=== PATIENT | female | born 1970 | race African-American/Black ===

== ENCOUNTER 2025-03-20 10:48 | Emergency (ER) | payer OTHER, SELFPAY ==
[2025-03-20 10:54] VITALS: BP 145/87; PULSE 80; RESP 19; TEMP 37.1; O2SAT 100
--- NOTE | 2025-03-20 11:24 | ED.URI ---
HPI - URI/Sore Throat General Chief Complaint: Upper Respiratory Infection Stated Complaint: Cough/SOB Time Seen by Provider: 03/20/25 11:15 Source: patient, RN notes reviewed and old records reviewed Mode of arrival: ambulatory Limitations: no limitations History of Present Illness HPI Narrative: 54 year old female presents to [facility] care with complaints of 3 day history of dry hacking cough which has made her lateral ribs sore from the frequency of her cough and has generalized body aches. Patient reports that she has also had some nasal congestion with drainage, denies any sore throat or any ear pain. Patient reports no fevers, chills or sweats. Patient has history of asthma and A-fib is on Eliquis. Patient has an inhaler but has not used her inhaler or taken any OTC medications for her symptoms states is concerned over what to take due to possible interaction with other medications she takes. MD elicited complaint: cough, rhinorrhea and nasal congestion Pertinent past history: asthma Onset (ago): day(s) (3) Consistency: constant Pain scale (0-10): 3 Able to tolerate fluids by mouth: Yes Treatments prior to arrival: other (no otc medication takes MONTELUKAST DAILY) Related Data Home Medications ?Medication ?Instructions ?Recorded ?Confirmed ?Last Taken ?Type apixaban 5 mg tablet (Eliquis) mg 03/20/25 Unknown History atorvastatin 20 mg tablet mg 03/20/25 Unknown History carvedilol 25 mg tablet mg 03/20/25 Unknown History diltiazem HCl 120 mg mg PO 03/20/25 Unknown History capsule,extended release 24 hr fluticasone 250 mcg-salmeterol 50 inhalation 03/20/25 Unknown History mcg/dose blistr powdr for inhalation (Wixela Inhub) hydrochlorothiazide 25 mg tablet mg 03/20/25 Unknown History levothyroxine 150 mcg tablet mcg 03/20/25 Unknown History montelukast 10 mg tablet mg 03/20/25 Unknown History Allergies Allergy/AdvReac Type Severity Reaction Status Date / Time No Known Allergies Allergy Verified 03/21/25 15:06 Review of Systems Review of Systems: CONSTITUTIONAL: Reports malaise, no chills, sweats, or fever. EYES: Denies visual changes, redness, or discharge. ENT: Reports rhinorrhea, congestion, sinus pressure, no otalgia and no sore throat. CARDIOVASCULAR: Denies chest pain, palpitations, or edema. RESPIRATORY: Reports acute frequent cough.? Denies any acute dyspnea, reports rib pain due to frequent cough GASTROINTESTINAL: Denies abdominal pain, nausea, vomiting, diarrhea SKIN: Denies rash or itching. MUSCULOSKELETAL: Reports myalgia. NEUROLOGIC: Denies headache. All systems reviewed & are unremarkable except as noted in HPI and below PMFSH Past Medical History Medical History (Updated 03/21/25 @ 15:10 by Mary Wood NP) Hypertension History of thyroid cancer Hypothyroidism Elevated cholesterol Paroxysmal A-fib Asthma Surgical History Surgical History (Updated 03/20/25 @ 12:29 by Lucia Lora NP) Previous section H/O thyroidectomy History of cholecystectomy Social History Social History (Updated 03/20/25 @ 11:37 by Lucia Lora NP) Smoking status: Never smoker Alcohol intake: current Alcohol use details: rare social Substance use type: does not use Gender identity (if verbalized by the patient): Female Comments At time of signature, agree with nursing past medical, surgical, social and family history. There is no relevant family history pertinent to the presenting complaint Exam Narrative: GENERAL: Well-appearing, well-nourished, and in no acute distress. HEAD: Normocephalic EYES: PERRLA, conjunctivae clear ENT: Nares clear, turbinates edematous and erythematous, clear discharge. Mucous membranes moist. TM pearly shen with dull light reflex bilaterally; no tragal tenderness. Oropharynx erythematous without lesions. Tonsils not enlarged and without exudate, no drooling, no hoarseness, no trismus, uvula midline.post nasal drainage NECK: Supple. No lymphadenopathy CHEST: Clear to auscultation, breath sounds equal. No wheezing, rhonchi, rales, or stridor. No respiratory distress, speaks in full sentences. frequent coughSAO2 100% on room air HEART: Regular rate and rhythm. No murmur heard. SKIN: Warm, dry, no rash. NEURO: Alert and oriented x3. PSYCH: Normal mood and affect Course Course Emergency Course: Patient is aware of diagnosis, understands and agrees to treatment plan.? Anticipatory guidance given.? Patient agrees to follow-up as directed and is aware of reasons to seek care at the emergency department. Portions of this record may have been created with voice recognition software Level of Care: Express Care Visit Vital Signs Vital signs: Vital Signs Temperature 37.1 C 03/20/25 10:54 Pulse Rate 80 03/20/25 10:54 Respiratory Rate 19 03/20/25 10:54 Blood Pressure 145/87 H 03/20/25 10:54 Pulse Oximetry 100 03/20/25 10:54 Oxygen Delivery Room Air 03/20/25 10:54 Temperature 37.1 C 03/20/25 10:54 Pulse Rate 80 03/20/25 10:54 Respiratory Rate 19 03/20/25 10:54 Blood Pressure 145/87 H 03/20/25 10:54 Pulse Oximetry 100 03/20/25 10:54 Oxygen Delivery Room Air 03/20/25 10:54 Reviewed MDM - URI/Sore Throat MDM Narrative Medical decision making narrative: Differential diagnosis considered: Donaldson virus, strep pharyngitis, allergic rhinitis, upper respiratory tract infection, sinusitis, rhinosinusitis, nasopharyngitis. viral pharyngitis, otitis media, otitis externa, pneumonia, bronchitis, viral cough syndrome, viral syndrome, and influenza.? Exam findings show no acute concerns or changes; patient is non-toxic appearing and is in no distress.? Patient is appropriate for outpatient treatment and follow-up. Differential Diagnosis Differential diagnosis: Likely upper respiratory infection, viral infection, bronchitis, influenza and other (COVID, acute cough) Medical Records Attestation: I reviewed the patient's medical records. Lab Data Attestation: I reviewed the patient's lab results. Lab results narrative: influenza A negative, Influenza B negative, COVID antigen negative Labs: Lab Results 03/20/25 03/20/25 03/20/25 Range/Units 11:05 11:05 11:05 POC Influenza A Ag Negative Negative (Negative) POC Influenza B Ag Negative Negative (Negative) POC SARS CoV-2 Ag Negative (Negative) 03/20/25 Range/Units 11:05 POC Influenza A Ag (Negative) POC Influenza B Ag (Negative) POC SARS CoV-2 Ag Negative (Negative) Critical Care Time Critical Care Time Critical Care Time: No Discharge Plan Discharge Clinical Impression: Upper respiratory infection with cough and congestion Patient Disposition: Home Condition: Stable Instructions: Antibiotic Form, Upper Respiratory Infection (ED), Acute Cough (ED) Additional Instructions: Increase fluids especially juices and water Rvip-ali-vrmremx cough and cold medicine of your choice for your symptoms Tylenol or Ibuprofen for any fever or pain Cough tablets as directed for cough--do not bite, chew or suck on--swallow whole Continue your inhaler/nebulizer as directed Zyrtec or Claritin or Zulema daily include Coricidin dcogestant heat to the face 20-30 minutes 4-6 times a day for pain Salt water gargles, throat lozenges or throat sprays as desired Antibiotic as directed--finished the medication If your symptoms persist, change or worsen significantly before you can contact your personal physician then please, without delay, go to the emergency department for further evaluation. Follow-up with PCP in 7-10 days or sooner if needed Follow up with PCP soon in regards to your blood pressure which is elevated above threshold for referral. Blood pressure above 120/80 may indicate pre-hypertension. 145/87 Patient Language: Serbian Prescriptions: New amoxicillin 500 mg capsule 500 mg PO TID Qty: 30 0RF Rx Instructions: take all doses of oral antibiotic benzonatate 200 mg capsule 200 mg PO TID PRN (Reason: cough) Qty: 20 0RF Rx Instructions: for cough No Action fluticasone propion-salmeterol [Wixela Inhub] 250-50 mcg/dose blister with device INHALATION carvedilol 25 mg tablet atorvastatin 20 mg tablet levothyroxine 150 mcg tablet diltiazem HCl 120 mg capsule,extended release 24hr PO montelukast 10 mg tablet hydrochlorothiazide 25 mg tablet Eliquis 5 mg tablet Follow-up/Referrals: Denice Stevens [Other] Time of Disposition: 11:45 Quality [place] Coma Scale Eyes: Open Verbal: Oriented and Alert Motor: Follows Commands [place] Coma Total Score: 15
[2025-03-20 11:43] LABS: EDCOVIDSCREEN Negative (Negative); EDINFLUASCREEN Negative (Negative); EDINFLUBSCREEN Negative (Negative)
[2025-03-20 11:44] LABS: EDCOVIDSCREEN Negative (Negative); EDINFLUASCREEN Negative (Negative); EDINFLUBSCREEN Negative (Negative)
== END 2025-03-20 11:50 | disposition home or self-care (01) ==
PROVIDERS: Emergency Provider Registered Nurse
DX: J06.9 Acute upper respiratory infection, unspecified (principal); R05.9 Cough, unspecified; Z20.822 Contact with and (suspected) exposure to COVID-19; I10 Essential (primary) hypertension; I48.0 Paroxysmal atrial fibrillation; E78.00 Pure hypercholesterolemia, unspecified; J45.909 Unspecified asthma, uncomplicated; E89.0 Postprocedural hypothyroidism; Z85.850 Personal history of malignant neoplasm of thyroid; Z79.01 Long term (current) use of anticoagulants
CPT/HCPCS: 87426; 87804; 99203; G0463

== ENCOUNTER 2025-03-21 14:47 | Emergency (ER) | payer OTHER, SELFPAY ==
[2025-03-21 14:58] VITALS: BP 110/66; PULSE 81; RESP 16; TEMP 37.1; O2SAT 99
--- NOTE | 2025-03-21 15:02 | ED_ITS ---
HPI - URI/Sore Throat General Chief Complaint: Upper Respiratory Infection Stated Complaint: upper respiratory infection seen 03/20/2025 Time Seen by Provider: 03/21/25 15:05 54-year-old female presents with concern for returning back to work. Reports she was seen yesterday for an upper respiratory infection. Reports she not feeling up to return to work yet. She wants to go back to work tomorrow. She has been taking the medication as prescribed. Source: patient and RN notes reviewed Mode of arrival: ambulatory Limitations: no limitations History of Present Illness MD elicited complaint: cough and sore throat Related Data Home Medications ?Medication ?Instructions ?Recorded ?Confirmed ?Last Taken ?Type apixaban 5 mg tablet (Eliquis) mg 03/20/25 Unknown History atorvastatin 20 mg tablet mg 03/20/25 Unknown History carvedilol 25 mg tablet mg 03/20/25 Unknown History diltiazem HCl 120 mg mg PO 03/20/25 Unknown History capsule,extended release 24 hr fluticasone 250 mcg-salmeterol 50 inhalation 03/20/25 Unknown History mcg/dose blistr powdr for inhalation (Onel Mg) hydrochlorothiazide 25 mg tablet mg 03/20/25 Unknown History levothyroxine 150 mcg tablet mcg 03/20/25 Unknown History montelukast 10 mg tablet mg 03/20/25 Unknown History Allergies Allergy/AdvReac Type Severity Reaction Status Date / Time No Known Allergies Allergy Verified 03/21/25 15:06 Review of Systems Review of Systems: CONSTITUTIONAL: Denies malaise, chills, sweats, or fever. EYES: Denies visual changes, redness, or discharge. ENT: Reports rhinorrhea, congestion CARDIOVASCULAR: Denies chest pain, palpitations, or edema. RESPIRATORY: Reports cough. Denies dyspnea. GASTROINTESTINAL: Denies abdominal pain, nausea, vomiting, diarrhea SKIN: Denies rash or itching. MUSCULOSKELETAL: Denies myalgia. NEUROLOGIC: Denies headache. All systems reviewed & are unremarkable except as noted in HPI and below PMFSH Past Medical History Medical History (Updated 03/21/25 @ 15:10 by Mary Wood NP) Hypertension History of thyroid cancer Hypothyroidism Elevated cholesterol Paroxysmal A-fib Asthma Surgical History Surgical History (Updated 03/20/25 @ 12:29 by Lucia Lora NP) Previous section H/O thyroidectomy History of cholecystectomy Social History Social History (Updated 03/20/25 @ 11:37 by Lucia Lora NP) Smoking status: Never smoker Alcohol intake: current Alcohol use details: rare social Substance use type: does not use Gender identity (if verbalized by the patient): Female Comments At time of signature, agree with nursing past medical, surgical, social and family history. There is no relevant family history pertinent to the presenting complaint Exam Narrative: GENERAL: Well-appearing, well-nourished, and in no acute distress. HEAD: Normocephalic EYES: PERRLA, conjunctivae clear ENT: Nares clear, clear discharge. Mucous membranes moist. NECK: Supple. No lymphadenopathy CHEST: Clear to auscultation, breath sounds equal. No wheezing, rhonchi, rales, or stridor. No respiratory distress, speaks in full sentences. Cough noted HEART: Regular rate and rhythm. No murmur heard. SKIN: Warm, dry, no rash. NEURO: Alert and oriented x3. PSYCH: Normal mood and affect Course Course Emergency Course: Patient is aware of diagnosis, understands and agrees to treatment plan. Anticipatory guidance given. Patient agrees to follow-up as directed and is aware of reasons to seek care at the emergency department. Portions of this record may have been created with voice recognition software Level of Care: Express Care Visit Vital Signs Vital signs: Vital Signs Temperature 98.7 F 03/21/25 14:58 Pulse Rate 81 03/21/25 14:58 Respiratory Rate 16 03/21/25 14:58 Blood Pressure 110/66 03/21/25 14:58 Pulse Oximetry 99 03/21/25 14:58 Oxygen Delivery Room Air 03/21/25 14:58 Temperature 98.7 F 03/21/25 14:58 Pulse Rate 81 03/21/25 14:58 Respiratory Rate 16 03/21/25 14:58 Blood Pressure 110/66 03/21/25 14:58 Pulse Oximetry 99 03/21/25 14:58 Oxygen Delivery Room Air 03/21/25 14:58 Reviewed. MDM - URI/Sore Throat MDM Narrative Medical decision making narrative: Differential diagnosis considered: Donaldson virus, strep pharyngitis, allergic rhinitis, upper respiratory tract infection, sinusitis, rhinosinusitis, nasopharyngitis. viral pharyngitis, otitis media, otitis externa, pneumonia, bronchitis, viral cough syndrome, viral syndrome, and influenza. Exam findings show no acute concerns or changes; patient is non-toxic appearing and is in no distress. Patient is appropriate for outpatient treatment and follow-up. Lab Data Attestation: I reviewed the patient's lab results. Critical Care Time Critical Care Time Critical Care Time: No Discharge Plan Discharge Clinical Impression: Upper respiratory infection Patient Disposition: Home Condition: Stable Instructions: Upper Respiratory Infection (ED) Additional Instructions: Recommend antihistamine such as Benadryl at night time and Zyrtec or Zulema during the day Also, recommend symptomatic treatment includes: rest, fluids, and increase humidity of the air at home. Recommend Acetaminophen as directed on the bottle to reduce fever, pain, headache. Avoid smoking/second-hand smoke. Please schedule a follow-up visit with your personal physician for further evaluation and treatment within 3-5days. If your symptoms persist, change or worsen significantly before you can contact your personal physician then please, without delay, go to the emergency department for further evaluation. Patient Language: Ghanaian Prescriptions: No Action fluticasone propion-salmeterol [Wixela Inhub] 250-50 mcg/dose blister with device INHALATION carvedilol 25 mg tablet atorvastatin 20 mg tablet levothyroxine 150 mcg tablet diltiazem HCl 120 mg capsule,extended release 24hr PO montelukast 10 mg tablet hydrochlorothiazide 25 mg tablet Eliquis 5 mg tablet amoxicillin 500 mg capsule 500 mg PO TID Qty: 30 0RF Rx Instructions: take all doses of oral antibiotic benzonatate 200 mg capsule 200 mg PO TID PRN (Reason: cough) Qty: 20 0RF Rx Instructions: for cough Follow-up/Referrals: PHYSICIAN,SEARCH ENGINE OPTIMIZATION MANAGER [Primary Care Provider] - Stand Alone Forms: Work/School Release IP Time of Disposition: 15:10
== END 2025-03-21 15:22 | disposition home or self-care (01) ==
PROVIDERS: Emergency Provider Nurse Practitioner
DX: J06.9 Acute upper respiratory infection, unspecified (principal); I10 Essential (primary) hypertension; E78.00 Pure hypercholesterolemia, unspecified; I48.0 Paroxysmal atrial fibrillation; J45.909 Unspecified asthma, uncomplicated; E89.0 Postprocedural hypothyroidism; Z85.850 Personal history of malignant neoplasm of thyroid
CPT/HCPCS: 99211; G0463

== ENCOUNTER 2025-08-05 14:20 | Emergency (ER) | payer OTHER, SELFPAY ==
--- NOTE | ~2025-08-05 | CT_ITS ---
EXAMINATION: CT abdomen pelvis wo con DATE: 08/05/2025 16:18 INDICATION: Hematuria TECHNIQUE: Computed tomography (CT) of the abdomen and pelvis was performed without intravenous contrast. The dose-length product was 1073.88 mGy-cm. Automated exposure control and iterative reconstruction technique were employed. COMPARISON: None. FINDINGS: Lung bases unremarkable. Heart size normal. No significant pleural or pericardial effusion. Status post cholecystectomy. The liver, spleen, pancreas, adrenal glands and left kidney are unremarkable. There is a right extrarenal pelvis. No renal stones. No ureteral stones. Bladder is unremarkable. No significant vascular abnormality. Nonobstructive bowel gas pattern. Mild lower thoracic spondylosis. IMPRESSION: 1. No acute abdominal abnormality. No findings to account for hematuria. Reviewed, dictated and finalized at location O.
[2025-08-05 14:21] VITALS: BP 146/77; PULSE 75; RESP 16; TEMP 37.4; O2SAT 100
--- OUTSIDE RECORDS SUMMARY | 2025-08-05 15:05 | XMS_ITS | Clinical Summary ---
Author Organization [facility] Address [address] [facility] [address] [place] [address] Care Team Providers Care Fishing Rod Trimmer Name Role Phone Ai Heath MD Primary Care Provider [phone] Source Comments [facility],non-[facility] Affiliates and Associated Physician Practices is amultiple site organization consisting of ambulatory clinics and hospital sitesin [place], [place], [place] and [place]. This disclosure is being madepursuant to the Care Everywhere program and may not contain all information available regarding this patient. Last updated 18.[facility] Health Allergies No known active allergies Social History Tobacco Use Types Packs/Day Years Used Date Smoking Tobacco: Never Assessed Comments No Sex and Gender Information Value Date Recorded Sex Assigned at Not on file Legal Sex Female 5:32 PM SIGN POSTER Gender Identity Not on file Sexual Orientation Not on file Last Filed Vital Signs Vital Sign Reading Time Taken Comments Blood Pressure - - Pulse - - Temperature - - Respiratory Rate - - Oxygen Saturation - - Inhaled Oxygen Concentration - - Weight 124.3 kg (274 lb) 03/03/2025 9:10 AM CDT Height 165.1 cm (5' 5) 03/03/2025 9:10 AM CDT Body Mass Index 45.6 03/03/2025 9:10 AM CDT Plan of Treatment Health Maintenance Due Date Last Done Comments COLON MONITORING 1968 COLONOSCOPY - COLON CA SCREENING 1968 CT COLONOGRAPHY - COLON CA SCREENING 1968 FIT - COLON CA SCREENING 1968 FLEX SIG - COLON CA SCREENING 1968 HIV SCREENING 1983 DTAP/TDAP/TD VACCINES (1 - Tdap) 1987 HEPATITIS B VACCINE (1 of 3 - 19+ 3-dose series) 1987 PAP SMEAR 1989 PNEUMOCOCCAL VACCINE 50+ (1 of 1 - PCV) 2018 ZOSTER VACCINE (1 of 2) 2018 DEPRESSION SCREENING 11/24/2024 COVID-19 VACCINE (3 - 2024- season) 2025 02/27/2021, 02/07/2021 INFLUENZA VACCINE (#1) 2025 COLOGUARD (AGES 45-75) - COLON CA SCREENING 03/02/2027 03/02/2024 Colorectal Cancer Screening 03/02/2027 MAMMOGRAM 03/03/2027 03/03/2025, 05/2024, 12/31/2023, Additional history exists LIPID TESTING 02/02/2030 02/02/2025, 10/02/2023 HEPATITIS C SCREENING Completed 04/29/2024 HIB VACCINE Aged Out No longer eligi ble based on patient's age to complete this topic HPV VACCINE Aged Out No longer eligi ble based on patient's age to complete this topic MENINGOCOCCAL (Group B) VACCINE SHARED DECISION-MAKING Aged Out No longer eligible based on patient's age to complete this topic MENINGOCOCCAL GROUPS A/C/Y/W VACCINE Aged Out No longer eligible based on patient's age to complete this topic Procedures Procedure Name Priority Date/Time Associated Diagnosis Comments MAMMO BILAT SCREENING W SYLVESTER Routine 03/03/2025 9:10 AM CDT Breast cancer screening by mammogram from Last 3 Months or Most Recently Relevant to Health Maintenance Results * Mammo Bilat Screening W Sylvester (03/03/2025 9:10 AM CDT) Anatomical Region Laterality Modality Breast Bilateral Mammography 03/03/2025 9:07 AM CDT Impressions 03/03/2025 10:57 AM CDT IMPRESSION: No mammographic evidence of malignancy. RECOMMENDATION: Screening mammography in one year, pending no interval breast concerns. Patient will receive the examination results by lay letter. OVERALL ASSESSMENT: BI-RADS CATEGORY 1: NEGATIVE. This study was dictated by ceo and president George Fernandez MD and reviewed and edited by the attending. Wilder Florez MD (breast imaging fellow) and Tj Angel MD (ceo and president) participated in interpretation of this study. I, Linn Hitchcock MD have personally reviewed and interpreted this examination/study. > Interpreting Provider: Linn Hitchcock MD on 03/03/2025 10:57 AM Narrative 03/03/2025 10:57 AM CDT EXAMINATIONS: BILATERAL DIGITAL SCREENING MAMMOGRAM AND BILATERAL BREAST TOMOSYNTHESIS LOCATION: [facility] EXAM DATE: 03/03/2025 HISTORY: Screening. No family history of breast cancer. RISK ASSESSMENT CALCULATION: Patient completed a breast cancer risk assessment during her appointment 03/03/2025. Based upon the information she provided and her mammographic breast density, her lifetime risk of developing breast cancer is 11 % (Average Risk <15%; Intermediate / Moderate Risk 15-19; High Risk > 20%). Risk assessment based upon the Tyrer-Cuzick v8 model. COMPARISON: Comparison is made to prior mammograms back to 08/07/2013. TECHNIQUE: Tomosynthesis (3D) and reconstructed synthetic 2-D images acquired and reviewed in the bilateral craniocaudal and mediolateral oblique projections. A total of 4 images obtained. Transpara AI was utilized in the interpretation. BREAST PARENCHYMAL COMPOSITION: Category B: There are scattered areas of fibroglandular density. FINDINGS: There are no suspicious findings or evidence of malignancy on mammography. There is no significant change from the prior. Denice Stevens MD MAMMO ORDERABLES Final Result from Last 3 Months or Most Recently Relevant to Health Maintenance Insurance [facility] [address] [address] [place] [address] Member Subscriber Plan / Payer (Ef fective 2020-Present) Name:Allison Heard Relation to Subscriber:Self Name:ALLISON HEARD Payer ID:[id number] (NAIC) Type:O Address: [address] [place] [id number] Care Teams Fishing Rod Trimmer Relationship Specialty Start Date End Date Ai Heath MD [address] [place] [address] PCP - General Internal Medicine 08/06/19
--- OUTSIDE RECORDS SUMMARY | 2025-08-05 15:06 | XMS_ITS | Encounter Summary ---
Author Organization [facility] Facility Care Team Providers Care Grey Stock Recorder Name Role Phone Unknown, Notinfile Primary Care Provider Unavail able Ai Heath MD Primary Care Provider [phone] Unknown, Notinfile Primary Care Provider Unavail able Unknown, Notinfile Primary Care Provider Unavail able Denice Stevens MD Primary Care Provider Encounter Details Date Type Department Care Team (Latest Contact Info) Description 12/16/2017 Orders Only [facility] CLINCONV ProviderSushma MD [address] [place] [id number] Social History Tobacco Use Types Packs/Day Years Used Date Smoking Tobacco: Never Comments Unknown Sex and Gender Information Value Date Recorded Sex Assigned at Not on file Legal Sex Female 2:30 AM BILINGUAL SECRETARY Gender Identity Not on file Sexual Orientation Not on file documented as of this encounter Plan of Treatment Not on file documented as of this encounter Procedures Procedure Name Priority Date/Time Associated Diagnosis Comments SCAN - PATHOLOGY 12/16/2017 12:0 0 AM BILINGUAL SECRETARY documented in this encounter Results * SCAN - PATHOLOGY (12/16/2017 12:00 AM BILINGUAL SECRETARY) Narrative 12/16/2017 12:00 AM BILINGUAL SECRETARY Ordered by an unspecified provider. us Historical Provider Final Res ult documented in this encounter Visit Diagnoses Not on filedocumented in this encounter Additional Health Concerns Infection Onset Date Last Indicated Resolved Time COVID19 Comment:Added from the Screening question BPA, identifying patients that tested positive for COVID in the last 14 days and the result is from a facility outside [facility] . 12/01/2021 12/01/2021 12/11/2021 3:06 AM BILINGUAL SECRETARY COVID: Suspected 09/29/2023 09/29/2023 09/29/2023 6:39 PM BILINGUAL SECRETARY Influenza, adult 09/29/2023 09/29/2023 10/06/2023 3:05 AM BILINGUAL SECRETARY documented as of this encounter Care Teams Grey Stock Recorder Relationship Specialty Start Date End Date Unknown, Notinfile PCP - General 05/01/17 09/15/19 Ai Heath MD [address] [facility] [place] [address] PCP - General 09/16/19 11/17/21 Unknown, Notinfile PCP - General 11/18/21 12/24/21 Unknown, Notinfile PCP - General 12/25/21 02/11/22 Denice Stevens MD [address] [facility] [place] [address] PCP - General Family Practice 02/12/22 documented as of this encounter
--- OUTSIDE RECORDS SUMMARY | 2025-08-05 15:06 | XMS_ITS | Encounter Summary ---
Author Organization [facility] Healthcare Address [address] [place] [address] Care Team Providers Care Deli Manager Name Role Phone Denice Stevens MD Primary Care Provider Reason for Visit * Reason Onset Date Comments Abnormal Uterine Bleeding 08/05/2025 Encounter Details Date Type Department Care Team (Late st Contact Info) Description 08/05/[address] [facility] Medical Group Obstetrical Gynecology [address] [address] Ludy Wharton MD [facility] [address] Abnormal Uterine Bleeding Social History Tobacco Use Types Packs/Day Years Used Date Smoking Tobacco: Never Smokeless Tobacco: Never Personal Safety Answer Date Recorded Have you ever been in or are you currently in a harmful physical or emotional relationship or is someone making you feel afraid or unsafe? Denies 09/06/2024 Comments No Sex and Gender Information Value Date Recorded Sex Assigned at Not on file Legal Sex Female 2:30 AM DIRECTOR AUTO Gender Identity Not on file Sexual Orientation Not on file documented as of this encounter Miscellaneous Notes * Telephone Encounter - Stephanie Chavez MA - 08/05/2025 1:42 PM CD[address] Patient of Dr. Campos Patient left voice mail, about AUB. I called patient back and she informed me that her son called 911 and is headed to the hospital. Patient started with sever low back pain and bleeding this morning. She is reporting that the blood is very dark in color. She has been in menopause for 6 years. documented in this encounter Plan of Treatment Not on file documented as of this encounter Visit Diagnoses Not on filedocumented in this encounter Care Teams Deli Manager Relationship Specialty Start Date End Date Denice Stevens MD [address] [facility] [place] [address] PCP - General Family Practice 02/12/22 documented as of this encounter
--- OUTSIDE RECORDS SUMMARY | 2025-08-05 15:06 | XMS_ITS | Clinical Summary ---
Author Organization [facility] Address [address] [place] [address] Care Team Providers Care First Assistant Name Role Phone Denice Stevens MD Primary Care Provider Allergies No known active allergies Medications simvastatin (ZOCOR) 20 mg tablet Take 1 tablet (20 mg total) by mouth daily 9 Active Klor-Con M20 20 mEq CR tablet 1 Active losartan (COZAAR) 25 mg tablet Take 1 tablet (25 mg total) by mouth daily 1 Active levothyroxine (SYNTHROID) 125 mcg tablet Take 1 tablet (125 mcg total) by mouth daily 6 Active hydroCHLOROthia zide (HYDRODIURIL) 25 mg tablet Take 1 tablet (25 mg total) by mouth beef cattle specialist before breakfast 2 Active hydrALAZINE (APRESOLINE) 50 mg tablet Take 1 tablet (50 mg total) by mouth 3 (three) times a day 2 Active ergocalciferol (VITAMIN D) 50,000 unit capsule TAKE 1 CAPSULE ONCE EVERY MONTH 0 Active dilTIAZem CD 120 mg 24 hr capsule Take by mouth daily 1 Active carvediloL (COREG) 25 mg tablet Take 1 tablet (25 mg total) by mouth 2 (two) times a day 2 Active aspirin 81 mg chewable tablet 2 Active apixaban (ELIQUIS) 5 mg tablet Take 1 tablet (5 mg total) by mouth 2 (two) times a day 1 Active albuterol HFA (PROVENTIL HFA,VENTOLIN HFA,PROAIR HFA) 90 mcg/actuation inhaler Inhale 2 puffs 4 (four) times a day as needed 0 Active metoclopramide (REGLAN) 10 mg tablet Take 1 tablet (10 mg total) by mouth every 6 (six) hours as needed (headache) 28 tablet 2 Active Additional Information Patient not taking.Reported on 07/15/2024 HYDROcodone-jaylen taminophen (NORCO) 7.5-325 mg per tabletIndicatio ns:Pain Take 1 tablet by mouth every 6 (six) hours as needed for pain 10 tablet 2 Active Additional Information Patient not taking.Reported on 07/15/2024 benzonatate (TESSALON) 100 mg capsuleIndicati ons:Cough Take 1 capsule (100 mg total) by mouth every 8 (eight) hours 21 capsule 3 Active Additional Information Patient not taking.Reported on 07/15/2024 Active Problems Problem Noted Date Diagnosed Date Multinodular goiter 03/13/2016 Morbid obesity 03/30/2012 Encounters Date Type Department Care Team Description 08/05/2025 Telephone [facility] Medical [facility] Obstetrical Gynecology [address] [place] [address] [place] [phone] Ludy Wharton MD Abnormal Uterine Bleeding 07/22/2025 11:15 AM CDT Office Visit [facility] Medical [facility] Obstetrical Gynecology [address] [place] [address] [address] [place] [address] Elvin Campos MD Well woman exam with routine gynecological exam (Primary Dx); Encounter for screening mammogram for malignant neoplasm of breast from Last 3 Months Surgical History Surgery Date Site/Laterality Comments THYROID SURGERY SECTION Medical History Medical History Date Comments Hypertension Family History Medical History Relation Name Comments Hypertension Father Hypertension Mother Breast cancer Neg Hx Ovarian cancer Neg Hx Uterine cancer Neg Hx Relation Name Status Comments Father Alive Mother Social History Tobacco Use Types Packs/Day Years [...] on file 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 Gender Identity Not on file Sexual Orientation Not on file Obstetrics History Para Term AB IAB SAB Ectopic Multiple Livin g Live Births 2 1 1 1 1 1 Date Outcome GA Total Labor Labor/2nd/3rd Weight Sex Type Anes PTL Alexandra A1 A5 Name Clin Term SAB Last Filed Vital Signs Vital Sign Reading Time Taken Comments Blood Pressure 124/80 07/22/2025 11:12 AM CDT Pulse 82 09/06/2024 8:01 PM CDT Temperature 37.1 C (98.8 F) 09/06/2024 8:01 PM CDT Respiratory Rate 18 09/06/2024 8:01 PM CDT Oxygen Saturation 100% 09/06/2024 8:01 PM CDT Inhaled Oxygen Concentration - - Weight 130.6 kg (288 lb) 07/22/2025 11:12 AM CDT Height 165.1 cm (5' 5) 07/22/2025 11:12 AM CDT Body Mass Index 47.93 07/22/2025 11:12 AM CDT Plan of Treatment Health Maintenance Due Date Last Done Comments Colon Cancer Screening-Colonoscopy 1968 Depression Screening 1968 Hepatitis C Screening 1968 Hepatitis B Screening 1986 Zoster Vaccine (1 of 2) 2018 Cervical Cancer Screening 07/15/20252023, 07/15/2024, 01/26/2021 Covid-19 Vaccine ( season) 2025 02/27/2021, 02/07/2021 Influenza Vaccine (#1) 2025 Breast Cancer Screening-Mammogram 03/03/2026 03/03/2025, 03/03/2025, 12/31/2023, Additional history exists Regular Well Visit/Exam 18-64 07/22/2026 07/22/2025, 07/15/2024, 01/26/2021 DTaP/Tdap/Td Vaccine (3 - Td or Tdap) 06/17/2034 06/17/2024, 02/08/2014 Pneumococcal vaccine <65 Aged Out No longer eligible based on patient's age to complete this topic Procedures Procedure Name Priority Date/Time Associated Diagnosis Comments HIGH RISK HPV DNA DETECTION WITH GENOTYPING Routine 07/15/2024 9:24 AM CDT Encounter for annual routine gynecological examination from Last 3 Months or Most Recently Relevant to Health Maintenance Results * High Risk HPV DNA Detection with Genotyping (Molecular component) (07/15/2024 9:24 AM CDT) HPV HR 16 Not Detected Not Detected LOCATED WITHIN [facility] Comment:Testing performed by : [facility], [address] [place]., [address] HPV HR 18 Not Detected Not Detected JULIUS BECERRA Comment:Testing performed by : [facility], [address] [place]., [address] HPV HR Non 16/18 Not Detected Not Detected JULIUS BECERRA Comment: Interpretive Data Nucleic acid amplification for detection of high-risk Human Papilloma virus (HPV) is performed by the [employer]on [employer] 6800 HPV test. This assay specifically detects HPV-16 and HPV-18 genotypes. The following HPV genotypes are detected as high-risk HPV: HPV-31, 33, 35, ,39, 45, 51, 52, 56, 58, 59, 66, and 68. This assay has been approved by the [place] Food and Drug Administration for detection of HPV in cervical specimens collected by a physician using an endocervical brush/spatula or cervical broom and placed in the ThinPrep Pap Test PreservCyt collection containers. The performance characteristics of this test have been verified by the [facility] Infectious Disease laboratory. Correlate with separately reported cytology results, as applicable. Interpretive data last revised 23 Testing performed by: [facility], [address] [place]., [address] Endocervical 07/15/2024 9:24 AM CDT 07/16/2024 9:06 AM CDT Narrative JULIUS - 07/16/2024 8:44 PM CDT Clinical history and diagnosis->01/26/21 wnl hpv-neg Number of vials->1 Testing type->Screening Last menstrual period (date if known)->PM Emma Sauer NP LAB BODY FLUIDS AND STOOLS O RDERABLES Final Result JULIUS [address] [facility] Department [place] [address] LOCATED WITHIN [facility] from Last 3 Months or Most Recently Relevant to Health Maintenance Insurance [place] [facility] HMO/PPO Address: [address] [address] [place] [address] Care Teams First Assistant Relationship Specialty Start Date End Date Denice Stevens MD [address] [facility] [place] [address] PCP - General Family Practice 02/12/22
[2025-08-05] MEDS: SODIUM CHLORIDE 0.9% IV 1,000 ML 999 ML IV CONT (15:38)
[2025-08-05] MEDS: ONDANSETRON INJ 4 MG/2 ML VIAL IV PUSH (15:39)
[2025-08-05] MEDS: KETOROLAC 30 MG/ML VIAL (*BKC) IV PUSH (15:40)
--- OUTSIDE RECORDS SUMMARY | 2025-08-05 15:53 | XMS_ITS | Encounter Summary ---
Author Organization [facility] Facility Care Team Providers Care Mobile Health Vehicle Operator Name Role Phone Unknown, Notinfile Primary Care Provider Unavail able Ai Heath MD Primary Care Provider [phone] Unknown, Notinfile Primary Care Provider Unavail able Unknown, Notinfile Primary Care Provider Unavail able Denice Stevens MD Primary Care Provider Encounter Details Date Type Department Care Team (Latest Contact Info) Description 12/16/2017 Orders Only [facility] ProviderSushma MD [address] [place] [address] Social History Tobacco Use Types Packs/Day Years Used Date Smoking Tobacco: Never Comments Unknown Sex and Gender Information Value Date Recorded Sex Assigned at Not on file 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 us Historical Provider Final Res ult documented in this encounter Visit Diagnoses Not on filedocumented in this encounter Additional Health Concerns Infection Onset Date Last Indicated Resolved Time COVID19 Comment:Added from the Screening question BPA, identifying patients that tested positive for COVID in the last 14 days and the result is from a facility outside [facility] . 12/01/2021 12/01/2021 12/11/2021 3:06 AM LUBE TECHNICIAN COVID: Suspected 09/29/2023 09/29/2023 09/29/2023 6:39 PM LUBE TECHNICIAN Influenza, adult 09/29/2023 09/29/2023 10/06/2023 3:05 AM LUBE TECHNICIAN documented as of this encounter Care Teams Mobile Health Vehicle Operator Relationship Specialty Start Date End Date Unknown, Notinfile PCP - General 05/01/17 09/15/19 Ai Heath MD [address] [facility] [place] [address] PCP - General 09/16/19 11/17/21 Unknown, Notinfile PCP - General 11/18/21 12/24/21 Unknown, Notinfile PCP - General 12/25/21 02/11/22 Denice Stevens MD [address] [facility] DEPT [place] [address] PCP - General Family Practice 02/12/22 documented as of this encounter
--- OUTSIDE RECORDS SUMMARY | 2025-08-05 15:53 | XMS_ITS | Clinical Summary ---
Author Organization [facility] Address [address] [place] [address] Care Team Providers Care Tile Professional Name Role Phone Denice Stevens MD Primary [...] 1 tablet (25 mg total) by mouth fisheries technician before breakfast 2 Active hydrALAZINE (APRESOLINE) 50 [...] Type Department Care Team Description 08/05/2025 Telephone [facility] Medical [facility] Obstetrical Gynecology [address] [place] [address] [place] [phone] Ludy Wharton MD Abnormal Uterine Bleeding 07/22/2025 11:15 AM CDT Office Visit [facility] Medical [facility] Obstetrical Gynecology [address] [place] [address] [address] [place] [address] Elvin Campos MD Well woman [...] on file 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 Correlate with separately reported cytology results, as applicable. Interpretive data last revised 23 Testing performed by: [facility], [address] [place]., [address] Endocervical 07/15/2024 9:24 AM CDT 07/16/2024 9:06 AM CDT Narrative JULIUS - 07/16/2024 8:44 PM CDT Clinical history and diagnosis->01/26/21 wnl hpv-neg Number of vials->1 Testing type->Screening Last menstrual period (date if known)->PM Emma Sauer NP LAB BODY FLUIDS AND STOOLS O RDERABLES Final Result JULIUS [address] [facility] Department [place] [address] [facility] from Last 3 Months or Most Recently Relevant to Health Maintenance Insurance [employer] [place] [facility] Care Teams Tile Professional Relationship Specialty Start Date End Date Denice Stevens MD [address] [facility] [place] [address] PCP - General Family Practice 02/12/22
--- OUTSIDE RECORDS SUMMARY | 2025-08-05 15:53 | XMS_ITS | Clinical Summary ---
Author Organization [facility] Address [address] [facility] [place] [address] Care Team Providers Care Industrial Electrical Technician Name Role Phone Ai Heath MD Primary Care Provider [phone] Source Comments [facility],non-[facility] Affiliates and Associated Physician Practices is amultiple site organization consisting of ambulatory clinics and hospital sitesin [place], [place], [place] and [place]. This disclosure is being madepursuant to the Care Everywhere program and may not contain all information available regarding this patient. 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 This study was dictated by sales consultant residential manager George Fernandez MD and reviewed and edited by the attending. Wilder Florez MD (breast imaging fellow) and Tj Angel MD (sales consultant residential manager) participated in interpretation of this study. I, Linn Hitchcock MD have personally reviewed and interpreted this examination/study. > Interpreting Provider: Linn Hitchcock MD on 03/03/2025 10:57 AM Narrative 03/03/2025 10:57 AM CDT EXAMINATIONS: BILATERAL DIGITAL SCREENING MAMMOGRAM AND BILATERAL BREAST TOMOSYNTHESIS LOCATION: [facility] EXAM DATE: 03/03/2025 HISTORY: Screening. No family [...] Most Recently Relevant to Health Maintenance Insurance [facility] [place] [address] Member Subscriber Plan / Payer (Ef fective 2020-Present) Name:Allison Heard Relation to Subscriber:Self Name:ALLISON HEARD Payer ID:[id number] (NAIC) Type:O Address: [address] [place] [id number] Care Teams Industrial Electrical Technician Relationship Specialty Start Date End Date Ai Heath MD [address] [place] [address] PCP - General Internal Medicine 08/06/19
--- OUTSIDE RECORDS SUMMARY | 2025-08-05 15:53 | XMS_ITS | Encounter Summary ---
Author Organization [facility] Healthcare Address [address] [place] [address] Care Team Providers Care Dietary Services Manager Name Role Phone Denice Stevens MD Primary Care Provider Reason for Visit * Reason Onset Date Comments Abnormal Uterine Bleeding 08/05/2025 Encounter Details Date Type Department Care Team (Late st Contact Info) Description 08/05/2025 Telephone [facility] Medical Group Obstetrical Gynecology [address] [address] Ludy Wharton MD [facility] [address] Abnormal Uterine Bleeding Social History [...] on file Legal Sex Female 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
[2025-08-05 16:12] LABS: Add Urine Microscopic? YES; Appearance Urine Clear (Clear); Glucose Urine UA Negative (Negative); Leukocyte Esterase Ur Negative LEU/UL (Negative); Need Manual Microscopic Reviewed; Nitrate Urine Negative (Negative); Non Pathogenic Casts 0-2; Specific Grav Ur 1.008 (1.001-1.035)
[2025-08-05 16:23] LABS: Alanine Aminotransferase 26 U/L (6-35); Albumin Level 4.1 g/dL (3.5-5.1); Alkaline Phosphatase 94 U/L (38-126); Anion Gap 8 mmol/L (4-12); Aspartate Amino Transferase 27 U/L (14-36); Bilirubin,Total 0.7 mg/dL (0.2-1.3); Blood Urea Nitrogen 15 mg/dL (7-17); Calcium 9.1 mg/dL (8.4-10.2); Carbon Dioxide 28 mmol/L (22-30); Chloride 103 mmol/L (98-107); Estimated CRCL calculation 86 ml/min; Estimated Glomerular Filt Rate > 60; Glucose 99 mg/dL (65-110); Hematocrit 39.9 % (37.0-47.0); Hemoglobin 13.1 g/dL (12.0-15.0); Immature Granulocyte Percent A 0.4 % (0-0.5); Lymphocytes Absolute Auto 1.41 K/mm3 (0.9-3.2); Mean Corpuscular HGB Conc 32.8 g/dl (32-36); Mean Corpuscular Hemoglobin 27.2 pg (26-34); Mean Corpuscular Volume 83.0 fl (80-100); Nucleated Red Blood Cells Absolute Auto 0.000 K/mm3 (0.0-0.012); Nucleated Red Blood Cells Perc 0.0 % (0.0-0.2); Platelet Count Result 219 k/mm3 (150-375); Potassium 3.6 mmol/L (3.4-5.0); Red Blood Count 4.81 M/mm3 (4.2-5.4); Sodium 139 mmol/L (137-145); Total Protein 7.3 g/dL (6.3-8.2); White Blood Count 5.3 K/mm3 (4.5-10.0)
--- NOTE | 2025-08-05 18:05 | ED_ITS ---
HPI - General Adult General Chief complaint: Urogenital-Female Stated complaint: hematuria, low back pain Time Seen by Provider: 08/05/25 15:07 History of Present Illness HPI narrative: Patient is a 54-year-old female who presents ER with low back pain and abdominal cramping. Began today. Associated with blood in her urine and also has had blood in her underwear. She is wearing a panty liner. She has completed menopause. She saw her storage garage attendant 2 weeks ago for a well check and had no issues. No fevers or chills or sweats. No urinary frequency urgency or dysuria. Related Data Home Medications ?Medication ?Instructions ?Recorded ?Confirmed ?Last Taken ?Type apixaban 5 mg tablet (Eliquis) mg 03/20/25 Unknown Hi story atorvastatin 20 mg tablet mg 03/20/25 Unknown History carvedilol 25 mg tablet mg 03/20/25 Unknown History diltiazem HCl 120 mg mg PO 03/20/25 Unknown Hist ory capsule,extended release 24 hr fluticasone 250 mcg-salmeterol 50 inhalation 03/20/25 Unknown History mcg/dose blistr powdr for inhalation (Onel Inhevelio) hydrochlorothiazide 25 mg tablet mg 03/20/25 Unknown History levothyroxine 150 mcg tablet mcg 03/20/25 Unknown His tory montelukast 10 mg tablet mg 03/20/25 Unknown History Allergies Allergy/AdvReac Type Severity Reaction Status Date / Time No Known Allergies Allergy Verified 08/05/25 15:10 [facility] Past Medical History Medical History (Updated 08/06/25 @ 00:00 by Destin Rogers) Hypertension History of thyroid cancer Hypothyroidism Elevated cholesterol Paroxysmal A-fib Asthma Surgical History Surgical History (Updated 03/20/25 @ 12:29 by Lucia Lora NP) Previous section H/O thyroidectomy History of cholecystectomy Social History Social History (Updated 03/20/25 @ 11:37 by Lucia Lora NP) Smoking status: Never smoker Alcohol intake: current Alcohol use details: rare social Substance use type: does not use Gender identity (if verbalized by the patient): Female Exam 2 Narrative: GENERAL: Well-appearing, well-nourished, and in no acute distress. HEAD: Normocephalic, atraumatic. ENT: Mucous membranes moist. CHEST: Clear to auscultation. No respiratory distress. HEART: Regular rate and rhythm. Normal peripheral pulses. ABDOMEN: Soft, nontender, nondistended. : Small amount of dark blood within the vaginal vault without hemorrhage or discharge. EXTREMITIES: Normal range of motion. No edema. SKIN: Warm, dry, no rash. NEURO: Alert and oriented x3. Course Course Emergency Course: Patient resting comfortably. Given reassurance. Discussed postmenopausal vaginal bleeding and need for close follow-up with her storage garage attendant which she will schedule. Discussed possibility of malignancy. Would not recommend discontinuing apixaban at this time since there is no significant hemorrhage normally dark spotting. Vital Signs Vital signs: Vital Signs Temperature 99.4 F 08/05/25 14:21 Pulse Rate 75 08/05/25 14:21 Respiratory Rate 16 08/05/25 14:21 Blood Pressure 146/77 H 08/05/25 14:21 Pulse Oximetry 100 08/05/25 14:21 Oxygen Delivery Room Air 08/05/25 14:21 Temperature 99.4 F 08/05/25 14:21 Pulse Rate 80 08/05/25 18:30 Respiratory Rate 16 08/05/25 18:30 Blood Pressure 142/85 H 08/05/25 18:30 Pulse Oximetry 98 08/05/25 18:30 Oxygen Delivery Room Air 08/05/25 14:21 Medical Decision Making Vital Signs Vital Signs: Vital Signs Temperature 99.4 F 08/05/25 14:21 Pulse Rate 75 08/05/25 14:21 Respiratory Rate 16 08/05/25 14:21 Blood Pressure 146/77 H 08/05/25 14:21 Pulse Oximetry 100 08/05/25 14:21 Oxygen Delivery Room Air 08/05/25 14:21 Temperature 99.4 F 08/05/25 14:21 Pulse Rate 80 08/05/25 18:30 Respiratory Rate 16 08/05/25 18:30 Blood Pressure 142/85 H 08/05/25 18:30 Pulse Oximetry 98 08/05/25 18:30 Oxygen Delivery Room Air 08/05/25 14:21 Lab Data 08/05/25 15:57 08/05/25 15:57 Labs: Lab Results 08/05/25 08/05/25 Range/Units 15:43 15:57 WBC 5.3 (4.5-10.0) K/mm3 RBC 4.81 (4.2-5.4) M/mm3 Hgb 13.1 (12.0-15.0) g/dL Hct 39.9 (37.0-47.0) % MCV 83.0 (80-100) fl MCH 27.2 (26-34) pg MCHC 32.8 (32-36) g/dl RDW 14.9 H (11.5-14.5) % Plt Count 219 (150-375) k/mm3 MPV 10.8 H (7.4-10.4) fl Immature Gran % (Auto) 0.4 (0-0.5) % Neut % (Auto) 64.1 (45.5-73.1) % Lymph % (Auto) 26.7 (18.3-44.2) % [place] % (Auto) 7.4 (2.6-8.5) % Eos % (Auto) 0.8 (0-4.4) % Baso % (Auto) 0.6 (0.2-1.2) % Lymph # (Auto) 1.41 (0.9-3.2) K/mm3 [place] # (Auto) 0.4 (0.1-0.6) K/mm3 Eos # (Auto) 0.0 (0-0.3) K/mm3 Baso # (Auto) 0.0 (0.0-0.1) K/mm3 Abs Immat Gran (auto) 0.02 (0.00-0.031) K/mm3 Absolute Neuts (auto) 3.4 (1.3-6.7) K/mm3 Absolute Nucleated RBC 0.000 (0.0-0.012) K/mm3 Nucleated RBC % 0.0 (0.0-0.2) % Sodium 139 (137-145) mmol/L Potassium 3.6 (3.4-5.0) mmol/L Chloride 103 (98-107) mmol/L Carbon Dioxide 28 (22-30) mmol/L Anion Gap 8 (4-12) mmol/L BUN 15 (7-17) mg/dL Creatinine 0.86 (0.7-1.0) mg/dL Estim Creat Clear Calc 86 ml/min Estimated GFR > 60 (59 - ) Glucose 99 (65-110) mg/dL Calcium 9.1 (8.4-10.2) mg/dL Total Bilirubin 0.7 (0.2-1.3) mg/dL AST 27 (14-36) U/L ALT 26 (6-35) U/L Alkaline Phosphatase 94 (38-126) U/L Total Protein 7.3 (6.3-8.2) g/dL Albumin 4.1 (3.5-5.1) g/dL Urine Color Yellow (Yellow) Urine Appearance Clear (Clear) Urine pH 8.0 (5.0-9.0) Ur Specific [place] 1.008 (1.001-1.035) Urine Protein Negative (Negative) mg/dL Urine Glucose (UA) Negative (Negative) mg/dL Urine Ketones Negative (Negative) mg/dL Ur Blood (Man) 3+ H (Negative) Urine Nitrate Negative (Negative) Urine Bilirubin Negative (Negative) Urine Urobilinogen 1.0 (<2.0) mg/dL Add Ur Microanalysis Reviewed Leukocyte Esterase Rfl Negative (Negative) TRACEY/UL Urine RBC 6-10 H (0-2) /hpf Urine WBC 0-5 (0-3) /hpf Ur Squamous Epith Cells None seen (Few) /hpf Urine Bacteria None seen /hpf Urine Casts 0-2 Imaging Data Radiologist's impression: ITS Impressions Abdomen/Pelvis CT 08/05/25 16:22 IMPRESSION: 1. No acute abdominal abnormality. No findings to account for hematuria. Discharge Plan Discharge Clinical Impression: Postmenopausal vaginal bleeding Patient Disposition: Home Condition: Stable Instructions: Abnormal (Dysfunctional) Uterine Bleeding (ED) Additional Instructions: You need to contact your storage garage attendant on Friday08/08/2025 and arrange close follow-up. You will also need to have an outpatient ultrasound performed of your uterus. Postmenopausal vaginal bleeding can be concerning for endometrial cancer. Return the ER if you have worsening cramping/pain, you have fever over 100.4? F, or the bleeding worsens to 1 pad an hour for 3 hours continuous. You may take ibuprofen on occasion but Tylenol as preferred since you are on a blood thinner. Patient Language: Israeli Prescriptions: No Action fluticasone propion-salmeterol [Wixela Inhub] 250-50 mcg/dose blister with device INHALATION carvedilol 25 mg tablet atorvastatin 20 mg tablet levothyroxine 150 mcg tablet diltiazem HCl 120 mg capsule,extended release 24hr PO montelukast 10 mg tablet hydrochlorothiazide 25 mg tablet Eliquis 5 mg tablet amoxicillin 500 mg capsule 500 mg PO TID Qty: 30 0RF Rx Instructions: take all doses of oral antibiotic benzonatate 200 mg capsule 200 mg PO TID PRN (Reason: cough) Qty: 20 0RF Rx Instructions: for cough Follow-up/Referrals: UNKNOWN,DOCTOR [Primary Care Provider] - 3 Days
[2025-08-05 18:30] VITALS: BP 142/85; PULSE 80; RESP 16; O2SAT 98
== END 2025-08-05 18:30 | disposition home or self-care (01) ==
PROVIDERS: Emergency Provider Emergency Medicine
DX: N95.0 Postmenopausal bleeding (principal); I10 Essential (primary) hypertension; E03.9 Hypothyroidism, unspecified; I48.0 Paroxysmal atrial fibrillation; J45.909 Unspecified asthma, uncomplicated; Z85.850 Personal history of malignant neoplasm of thyroid
CPT/HCPCS: 36415; 74176; 80053; 81001; 85025; 96361; 96374; 96375; 99284; J1885; J2405; J7030

== ENCOUNTER 2025-08-13 10:25 | Emergency (ER) | payer OTHER, SELFPAY ==
--- NOTE | ~2025-08-13 | XR_ITS ---
X-rays left wrist Indication: Pain, decreased range of motion Comparison: None Technique: 4 views left wrist Findings/Impression: 1. Tiny bone fragment proximal to scaphoid head. Question acute or chronic injury. Recommend correlation with point tenderness. 2. No other fracture left wrist. 3. No significant degenerative changes. 4. No dislocation. Reviewed, dictated and finalized at location R.
[2025-08-13 10:30] VITALS: BP 140/78; PULSE 75; RESP 14; TEMP 37.3; O2SAT 100
--- NOTE | 2025-08-13 10:34 | ED.GENADULT ---
HPI - General Adult General Chief complaint: Extremity Problem,Nontraumatic Stated complaint: Pain in left wrist and can't bend it Time Seen by Provider: 08/13/25 10:35 Source: patient Mode of arrival: ambulatory Limitations: no limitations History of Present Illness HPI narrative: 54-year-old female patient presents to the [facility] with complaints of left wrist pain that started when she woke up from sleeping yesterday. Denies any injury that she is aware of. Rates her pain 05/03. Patient states the pain is right at the base of the left thumb into the wrist area. Patient states she has a very hard time with extension or flexion of the wrist. Denies taking anything for pain prior to arrival or yesterday. Patient denies any repetitive motion. Related Data Home Medications ?Medication ?Instructions ?Recorded ?Confirmed ?Last Taken ?Type apixaban 5 mg tablet (Eliquis) mg 03/20/25 Unknown History atorvastatin 20 mg tablet mg 03/20/25 Unknown History carvedilol 25 mg tablet mg 03/20/25 Unknown History diltiazem HCl 120 mg mg PO 03/20/25 Unknown History capsule,extended release 24 hr fluticasone 250 mcg-salmeterol 50 inhalation 03/20/25 Unknown History mcg/dose blistr powdr for inhalation (Wixela Inhub) hydrochlorothiazide 25 mg tablet mg 03/20/25 Unknown History levothyroxine 150 mcg tablet mcg 03/20/25 Unknown History montelukast 10 mg tablet mg 03/20/25 Unknown History Allergies Allergy/AdvReac Type Severity Reaction Status Date / Time No Known Allergies Allergy Verified 08/13/25 10:27 Review of Systems Review of Systems: CONSTITUTIONAL: Denies fever, chills, or sweats. EYES: Denies visual changes, redness, or discharge. ENT: Denies rhinorrhea, congestion, sore throat, or otalgia. CARDIOVASCULAR: Denies chest pain, palpitations, or edema. RESPIRATORY: Denies cough or dyspnea. GASTROINTESTINAL: Denies abdominal pain, nausea, vomiting, or diarrhea. GENITOURINARY: Denies dysuria or hematuria. SKIN: Denies rash or itching. MUSCULOSKELETAL: Denies back pain, joint pain, or myalgia. Positive left wrist pain since yesterday NEUROLOGIC: Denies headache, numbness, or weakness. PSYCHIATRIC: Denies anxiety or depression. [facility] Past Medical History Medical History Hypertension History of thyroid cancer Hypothyroidism Elevated cholesterol Paroxysmal A-fib Asthma Surgical History Surgical History Previous section H/O thyroidectomy History of cholecystectomy Social History Social History Smoking status: Never smoker Alcohol intake: current Alcohol use details: rare social Substance use type: does not use Gender identity (if verbalized by the patient): Female Comments At the time of my signature I agree with nursing past medical history, surgical, social, and family history. There is no relevant family history pertinent to the presenting complaint. Exam Narrative: GENERAL: Well-appearing, well-nourished, and in no acute distress. HEAD: Normocephalic, atraumatic. EYES: PERRLA and EOMI. ENT: Nares clear, no rhinorrhea or epistaxis. Mucous membranes moist. NECK: Supple. No lymphadenopathy CHEST: Clear to auscultation. No respiratory distress. HEART: Regular rate and rhythm. No murmur heard. Normal peripheral pulses. ABDOMEN: Soft, nontender, nondistended, normal active bowel sounds. EXTREMITIES: The L wrist is without obvious asymmetry or deformity when compared to the R wrist. No surface trauma, open wounds, swelling, or obvious deformity. No overlying erythema or warmth. No bony crepitus or focal area of TTP. No scaphoid fullness or tenderness to direct palpation or axial load. Decrease in pain with flex/extension, ulnar/radial deviation. Pain with tapping to radial nerve. Ulnar and radial pulses intact. Negaitve Phalen's/positive Tinel's sign. Negative Amari test. SKIN: Warm, dry, no rash. NEURO: No focal deficits. Alert and oriented x3. Course Course Level of Care: Express Care Visit Reevaluation(s) Reevaluation #1: Re-evaluated patient after x-ray has been read. X-ray shows possible wrist fracture and patient does have point tenderness to the area therefore we will go ahead and splint her today and have her follow-up with Ortho. I did provide her follow-up contact however patient states that she is seeing Ortho doctor at [place] for her knee and so she is going to call her Ortho on Friday to see if she can get in to be seen for the wrist as well. Patient was instructed to take Tylenol for pain and keep it elevated to help decrease swelling. Patient verbalized understanding and denies any other questions or concerns at this time. Date: 08/13/25 Time: 11:25 Vital Signs Vital signs: Vital signs reviewed. Medical Decision Making MDM Narrative Medical decision making narrative: Plan care patient is to x-ray the left wrist to rule out any underlying fracture, gout, hairline fracture. I will reassess patient once this has resulted. Differential Diagnosis Differential Diagnosis: Differential diagnosis: Fracture, ligament injury, scaphoid fracture, sprains, tendinitis, carpal tunnel syndrome, DeQuervain's tenosynovitis Imaging Data Radiologist's impression: [facility] [address] [place] [address] XRay Report Signed Patient: Allison Corrales : 1970 MR#: [id number] Age: 54 Acct:[id number] Loc: [facility] ADM Date: 08/13/25Attending Dr: Ordering Physician: Ruba Rosas APRN Date of Service: 08/13/25 Procedure(s): XR wrist LT min 3V Accession Number(s): [id number] cc: Ruba Rosas APRN~ X-rays left wrist Indication: Pain, decreased range of motion Comparison: None Technique: 4 views left wrist Findings/Impression: 1. Tiny bone fragment proximal to scaphoid head. Question acute or chronic injury. Recommend correlation with point tenderness. 2. No other fracture left wrist. 3. No significant degenerative changes. 4. No dislocation. Reviewed, dictated and finalized at location R. Please be advised this is a medical document. It is intended for [id number] communication. It is written in medical language and may contain unfamiliar abbreviations or verbiage. Medical documents are intended to carry relevant information, facts as evident, and the clinical opinion of the practitioner at the time of the encounter. This report may have been done utilizing a voice recognition system. Attempts have been made to correct errors. However, there may be uncorrected grammatical, spelling, and recognition errors present. The file time of this note does not necessarily represent the time of service. Dictated By: Morris Mishra MD 08/13/25 1100 Signed By: <Electronically signed by Morris Mishra MD in OV> Critical Care Time Critical Care Time Critical Care Time: No Discharge Plan Discharge Clinical Impression: Fracture of left wrist Qualifiers: Encounter type: initial encounter Fracture type: closed Qualified Code(s): S62.102A - Fracture of unspecified carpal bone, left wrist, initial encounter for closed fracture Patient Disposition: Home Condition: Stable Instructions: Antibiotic Form, Suspected Fracture (ED) Additional Instructions: Avoid weight bearing until the pain subsides. Ice to the area 20-30 minutes 4-6 times a day Elevate above heart Elastic wrap or orthopedic splint as directed for comfort for the next 5-7 days Crutches as directed if needed Tylenol for lesser pain Ibuprofen regularly for the next 2-3 days for the inflammation Follow up with your primary care provider if the condition is not improving within 1 week or sooner if the Condition worsens with numbness, tingling, decrease sensation with weakness to seek ER. Patient Language: Nigerien Prescriptions: No Action fluticasone propion-salmeterol [Wixela Inhub] 250-50 mcg/dose blister with device INHALATION carvedilol 25 mg tablet atorvastatin 20 mg tablet levothyroxine 150 mcg tablet diltiazem HCl 120 mg capsule,extended release 24hr PO montelukast 10 mg tablet hydrochlorothiazide 25 mg tablet Eliquis 5 mg tablet Follow-up/Referrals: Darrell Pierre MD [Physician, Orthopedics] PHYSICIAN NOT ON STAFF,NONSTAFF [Primary Care Provider] Time of Disposition: 11:23
[2025-08-13] MEDS: ACETAMINOPHEN 500 MG TABLET 1000 MG PO (10:59)
== END 2025-08-13 11:57 | disposition home or self-care (01) ==
PROVIDERS: Emergency Provider Nurse Practitioner Family
DX: S62.102A Fracture of unspecified carpal bone, left wrist, initial encounter for closed fracture (principal); X58.XXXA Exposure to other specified factors, initial encounter; I10 Essential (primary) hypertension; E89.0 Postprocedural hypothyroidism; E78.00 Pure hypercholesterolemia, unspecified; I48.0 Paroxysmal atrial fibrillation; J45.909 Unspecified asthma, uncomplicated; Z85.850 Personal history of malignant neoplasm of thyroid; Z79.01 Long term (current) use of anticoagulants
CPT/HCPCS: 29125; 73110; 99214; A4565; A9270; G0463